=== PATIENT | female | born 1985 | race Caucasian/White ===

== ENCOUNTER 2019-06-08 14:59 | Emergency (ER) | payer SELFPAY ==
[2019-06-08 15:18] VITALS: BMI 29.5
--- NOTE | 2019-06-08 16:30 | PDOC ---
History of Present Illness - General Chief Complaint: Vaginal Bleeding Stated Complaint: PELVIC PAIN Time Seen by Provider: 06/08/19 16:11 - History of Present Illness Initial Comments: Ms. Hogue is a 33 y/o female G0 with PMH significant for hypothyroidism and PCOS presenting today with vaginal bleeding for the past 3 weeks. Reports that she has very irregular periods every few months, and they usually last 1-2 weeks. Reports that this has lasted longer than her previous periods. Reports dizziness that started a week ago. Reports cramping every other day, and noticed that she was passing blood clots over the past week. Denies nausea/vomiting. Denies dysuria or hematuria. Denies chest pain/ shortness of breath. Denies abdominal pain. Denies back pain. Denies fever/ chills. Past History - Past Medical History Allergies/Adverse Reactions: Allergies Allergy/AdvReac Type Severity Reaction Status Date / Time No Known Allergies Allergy Verified 06/08/19 15:18 Home Medications: Ambulatory Orders NK [No Known Home Medication] 06/08/19 COPD: No - Psycho Social/Smoking Cessation Hx Smoking History: Never smoked Have you smoked in the past 12 months: No Information on smoking cessation initiated: No Hx Alcohol Use: No Drug/Substance Use Hx: No Review of Systems - Review of Systems Comments:: GENERAL/CONSTITUTIONAL: No fever or chills. No weakness._ HEAD, EYES, EARS, NOSE AND THROAT: No change in vision. No change in hearing. No sore throat._ CARDIOVASCULAR: No chest pain or shortness of breath_ RESPIRATORY: Denies cough, hemoptysis_ GASTROINTESTINAL: No nausea, vomiting, diarrhea or constipation._ GENITOURINARY: No dysuria, frequency, or change in urination. Reports vaginal bleeding, cramps, and passing clots. MUSCULOSKELETAL: No joint or muscle swelling or pain. No neck or back pain._ SKIN: No rash_ NEUROLOGIC: Reports dizziness. No headache, loss of consciousness, or change in strength/sensation._ ENDOCRINE: No increased thirst. No abnormal weight change_ HEMATOLOGIC/LYMPHATIC: No history of anemia or easy bleeding. ALLERGIC/IMMUNOLOGIC: No hives or skin allergy._ *Physical Exam - Vital Signs Last Vital Signs Temp Pulse Resp BP Pulse Ox 98.3 F 87 16 128/82 100 06/08/19 15:16 06/08/19 15:16 06/08/19 15:16 06/08/19 15:16 06/08/19 15:16 - Physical Exam GENERAL: Awake, alert, and oriented to person/place/time, in no acute distress_ HEAD: No signs of trauma, normocephalic, atraumatic _ EYES: PERRLA, EOMI, sclera anicteric, conjunctiva clear_ ENT: Hearing grossly normal, nares patent, oropharynx clear without exudates. No uvular deviation. Moist mucosa_ NECK: Normal ROM, supple, no lymphadenopathy, JVD, or masses_ LUNGS: No distress, speaks in full sentences, clear to auscultation bilaterally _ HEART: Regular rate and rhythm, normal S1 and S2, no murmurs appreciated, peripheral pulses normal and equal bilaterally._ ABDOMEN: Soft, TTP LLQ, normoactive bowel sounds. No guarding, no rebound. No masses_ EXTREMITIES: Normal inspection, Normal range of motion, no edema. No clubbing or cyanosis_ NEUROLOGICAL: Cranial nerves II through XII grossly intact. Normal speech, normal gait, no focal sensorimotor deficits _ SKIN: Warm, Dry, normal turgor, no rashes or lesions noted_ PELVIC: External exam shows no rash, lesions, ulcers. Blood in the vaginal vault and posterior fornix. Os appears closed. Left adnexal tenderness. No right sided tenderness or CMT. No masses felt. No vaginal discharge. No pooling of blood. ED Treatment Course - LABORATORY CBC & Chemistry Diagram: 06/08/19 16:31 06/08/19 17:33 Medical Decision Making - Medical Decision Making 06/08/19 16:30 33F hx of PCOS and hypothyroidism, G0, irregular periods, presenting with 3 weeks of vaginal bleeding/clots/cramping. -cbc, cmp, tsh -ua, ucx, upreg -t+s 06/08/19 21:16 TVUS shows no ovarian torsion or enlarged cyst. Labs reviewed. Laboratory Tests 06/08/19 06/08/19 06/08/19 16:31 16:31 16:31 WBC 13.1 H RBC 4.62 Hgb 12.8 Hct 39.8 MCV 86.2 MCH 27.6 MCHC 32.1 RDW 15.2 Plt Count 316 MPV 8.9 Absolute Neuts (auto) 7.6 Neutrophils % 57.6 Lymphocytes % 32.6 Monocytes % 6.9 Eosinophils % 2.0 Basophils % 0.9 Nucleated RBC % 0 PT with INR INR PTT (Actin FS) Sodium Cancelled Potassium Cancelled Chloride Cancelled Carbon Dioxide Cancelled Anion Gap Cancelled BUN Cancelled Creatinine Cancelled Est GFR (CKD-EPI)AfAm Cancelled Est GFR (CKD-EPI)NonAf Cancelled Random Glucose Cancelled Calcium Cancelled Total Bilirubin Cancelled AST Cancelled ALT Cancelled Alkaline Phosphatase Cancelled Total Protein Cancelled Albumin Cancelled TSH Urine Color Urine Appearance Urine pH Ur Specific [place] Urine Protein Urine Glucose (UA) Urine Ketones Urine Blood Urine Nitrite Urine Bilirubin Urine Urobilinogen Ur Leukocyte Esterase Urine WBC (Auto) Urine RBC (Auto) Urine Casts (Auto) U Epithel Cells (Auto) Urine Bacteria (Auto) Urine HCG, Qual Negative Blood Type Antibody Screen 06/08/19 06/08/19 06/08/19 16:31 16:31 16:31 WBC RBC Hgb Hct MCV MCH MCHC RDW Plt Count MPV Absolute Neuts (auto) Neutrophils % Lymphocytes % Monocytes % Eosinophils % Basophils % Nucleated RBC % PT with INR Cancelled INR Cancelled PTT (Actin FS) Cancelled Sodium Potassium Chloride Carbon Dioxide Anion Gap BUN Creatinine Est GFR (CKD-EPI)AfAm Est GFR (CKD-EPI)NonAf Random Glucose Calcium Total Bilirubin AST ALT Alkaline Phosphatase Total Protein Albumin TSH Cancelled Urine Color Yellow Urine Appearance Clear Urine pH 6.5 Ur Specific [place] 1.025 Urine Protein Negative Urine Glucose (UA) Negative Urine Ketones Negative Urine Blood 3+ H Urine Nitrite Negative Urine Bilirubin Negative Urine Urobilinogen 1.0 Ur Leukocyte Esterase Negative Urine WBC (Auto) 2 Urine RBC (Auto) 276 Urine Casts (Auto) 1 U Epithel Cells (Auto) 1.1 Urine Bacteria (Auto) 11.3 Urine HCG, Qual Blood Type Antibody Screen 06/08/19 06/08/19 06/08/19 16:31 17:33 17:33 WBC RBC Hgb Hct MCV MCH MCHC RDW Plt Count MPV Absolute Neuts (auto) Neutrophils % Lymphocytes % Monocytes % Eosinophils % Basophils % Nucleated RBC % PT with INR 12.40 INR 1.05 PTT (Actin FS) 34.3 Sodium 138 Potassium 3.5 Chloride 105 Carbon Dioxide 25 Anion Gap 8 BUN 14.6 Creatinine 0.7 Est GFR (CKD-EPI)AfAm 133.81 Est GFR (CKD-EPI)NonAf 115.45 Random Glucose 89 Calcium 9.0 Total Bilirubin 0.2 AST 23 ALT 50 Alkaline Phosphatase 104 Total Protein 7.6 Albumin 3.9 TSH Urine Color Urine Appearance Urine pH Ur Specific [place] Urine Protein Urine Glucose (UA) Urine Ketones Urine Blood Urine Nitrite Urine Bilirubin Urine Urobilinogen Ur Leukocyte Esterase Urine WBC (Auto) Urine RBC (Auto) Urine Casts (Auto) U Epithel Cells (Auto) Urine Bacteria (Auto) Urine HCG, Qual Blood Type Cancelled Antibody Screen Cancelled 06/08/19 17:33 WBC RBC Hgb Hct MCV MCH MCHC RDW Plt Count MPV Absolute Neuts (auto) Neutrophils % Lymphocytes % Monocytes % Eosinophils % Basophils % Nucleated RBC % PT with INR INR PTT (Actin FS) Sodium Potassium Chloride Carbon Dioxide Anion Gap BUN Creatinine Est GFR (CKD-EPI)AfAm Est GFR (CKD-EPI)NonAf Random Glucose Calcium Total Bilirubin AST ALT Alkaline Phosphatase Total Protein Albumin TSH 3.67 Urine Color Urine Appearance Urine pH Ur Specific [place] Urine Protein Urine Glucose (UA) Urine Ketones Urine Blood Urine Nitrite Urine Bilirubin Urine Urobilinogen Ur Leukocyte Esterase Urine WBC (Auto) Urine RBC (Auto) Urine Casts (Auto) U Epithel Cells (Auto) Urine Bacteria (Auto) Urine HCG, Qual Blood Type Antibody Screen 06/08/19 22:17 CT abd shows no acute intra-abdominal pathology. Plan to d/c home with OBGYN follow up. Discussed the plan with the patient who verbalized understanding and agreement. Return precautions given. All questions answered. Discharge - Discharge Information Problems reviewed: Yes Clinical Impression/Diagnosis: Vaginal bleeding Condition: Stable Disposition: HOME - Admission No - Follow up/Referral Referrals: Frederick Kemp [Primary Care Provider] - Issac Feldman MD [Staff Physician] - - Patient Discharge Instructions Patient Printed Discharge Instructions: DI for Vaginal Bleeding Additional Instructions: Please make an appointment with an OBGYN for follow up (referral provided here) for the vaginal bleeding and left lower abdominal pain. If you experience any new, worsening, or concerning symptoms, including dizziness, severe abdominal or pelvic pain, shortness of breath, fever and chills, or any other concerns, please return to the emergency department. - Post Discharge Activity
[2019-06-08 17:19] LABS: BASO % 0.9 % (0-2.0); HEMATOCRIT 39.8 % (32.4-45.2); HEMOGLOBIN 12.8 GM/dL (10.7-15.3); LYMPH % 32.6 % (8-40); MCH 27.6 pg (25.7-33.7); MCHC 32.1 g/dl (32.0-36.0); MEAN CELL VOLUME 86.2 fl (80-96); MEAN PLT VOLUME 8.9 fl (7.5-11.1); MONO % 6.9 % (3.8-10.2); NEUT % 57.6 % (42.8-82.8); PLATELET COUNT 316 K/MM3 (134-434); RBC 4.62 M/mm3 (3.60-5.2); RDW 15.2 % (11.6-15.6); WHITE BLOOD COUNT 13.1 K/mm3 (4.0-10.0)
[2019-06-08 17:38] LABS: EPI CELLS 1.1 /HPF (0-5/HPF); HYALINE CASTS 1 /lpf (0-8); PH,URINE 6.5 (5.0-8.0); URINE APPEARANCE CLEAR; URINE BACTERIA 11.3 /hpf (NEGATIVE); URINE BILIRUBIN NEGATIVE (NEGATIVE); URINE COLOR YELLOW; URINE GLUCOSE (UA) NEGATIVE (NEGATIVE); URINE KETONE NEGATIVE (NEGATIVE); URINE LEUK ESTERASE NEGATIVE (NEGATIVE); URINE NITRITE NEGATIVE (NEGATIVE); URINE PROTEIN NEGATIVE (NEGATIVE); URINE RBC 276 /hpf (0-4); URINE WBC 2 /hpf (0-5)
[2019-06-08 18:18] LABS: INR 1.05 (0.83-1.09); PROTHROMBIN TIME (PATIENT) 12.4 SEC (9.7-13.0)
[2019-06-08 18:21] LABS: ACTIVATED PTT 34.3 SECONDS (25.2-36.5)
[2019-06-08 18:36] LABS: ALBUMIN 3.9 g/dl (3.4-5.0); BILIRUBIN,TOTAL 0.2 mg/dL (0.2-1); BLOOD UREA NITROGEN 14.6 mg/dL (7-18); CREATININE 0.7 mg/dL (0.55-1.3); POTASSIUM 3.5 mmol/L (3.5-5.1); TOT PROT 7.6 g/dl (6.4-8.2)
--- NOTE | 2019-06-08 19:24 | PDOC ---
Documentation entered by Cristino White SCRIBE, acting as scribe for Vandana Lam MD. Vandana Lam MD: This documentation has been prepared by the Christopher nava Nirvannie, SCRIBE, under my direction and personally reviewed by me in its entirety. I confirm that the documentation accurately reflects all work, treatment, procedures, and medical decision making performed by me. Attending Attestation - Resident Resident Name: Yung Yao - ED Attending Attestation I have performed the following: I have examined & evaluated the patient, The case was reviewed & discussed with the resident, I agree w/resident's findings & plan, Exceptions are as noted - HPI HPI: 06/08/19 18:40 The patient is a 33 year old female, with a significant past medical history of PCOS and hypothyroidism, who presents to the emergency department with 3 weeks of progressively worsening vaginal bleeding with 1.5 weeks of left sided pelvic pain. Patient notes today she has been passing large clots and needed to change 3-4 pads per hour with associated lightheadness prompting her to come in. She reports that her periods often last for 1-2 weeks and can be very heavy, but this is the longest her bleeding has lasted. Has a [employer] OFFIC[employer] but lost her insurance until Jul 2019 and has not been able to f/u. She denies recent F/C, nausea, vomit, diarrhea or constipation. She denies recent dysuria, frequency, urgency or hematuria. She denies recent chest pain or shortness of breath. Allergies: NKDA [employer] TECHNICAL OFFICER: Dr. Echols - Physicial Exam PE: 06/08/19 19:11 GENERAL: Awake, alert, and fully oriented, in no acute distress HEAD: No signs of trauma EYES: PERRLA, EOMI, sclera anicteric, conjunctiva clear ENT: Oropharynx clear without exudates. Moist mucosa NECK: Normal ROM, supple, no lymphadenopathy, JVD, or masses LUNGS: Breath sounds equal, clear to auscultation bilaterally. No wheezes, and no crackles HEART: Regular rate and rhythm, normal S1 and S2, no murmurs, rubs or gallops ABDOMEN: Soft, nontender, normoactive bowel sounds. No guarding, no rebound. No masses PELVIC: +dark moderate blood in vaginal vault, no pooling in speculum. Os closed. No midline or R adnexal ttp. +L adnexal ttp EXTREMITIES: Normal range of motion, no edema. No cords, erythema, or tenderness. WWP. NEUROLOGICAL: Normal speech, cranial nerves intact, equal strength and sensation b/l SKIN: Warm, Dry, normal turgor, no rashes or lesions noted. - Medical Decision Making 06/08/19 19:15 33yo F hx PCOS, hypothyroidism presents to the ED with heavy vaginal bleeding for 3 weeks and 1.5 weeks of L sided pelvic pain. Vitals wnl +L adnexal ttp and vaginal bleeding DDx includes ovarian cyst vs dysfunctional uterine bleeding vs Unlikely ovarian torsion as pain is dull, has been present for 1.5 weeks with no acute episodes of pain Plan: -UPT -labs -TVUS -UA -reassess 06/08/19 21:00 Pt is not anemic US negative for L adnexal pathology +LLQ ttp on rpt abd exam CTAP ordered to r/o diverticulitis or other acute LLQ pathology Will reassess CTAP with no acute findings Likely pain 2/2 PCOS No bleeding while in ED Pt well appearing, clinically stable for DC home with [employer] f/u I discussed the physical exam findings, ancillary test results and final diagnoses with the patient. I answered all of the patient's questions. The patient was satisfied with the care received and felt comfortable with the discharge plan and treatment plan. The patient will call their primary care physician within 24 hours to arrange follow-up and will return to the Emergency Department with any new, persistent or worsening symptoms.
[2019-06-08 22:45] VITALS: BP 122/68; PULSE 88; TEMP 98.6
== END 2019-06-08 22:40 | disposition home or self-care (01) ==
LOC: JER 14:59
DX: N93.8 Other specified abnormal uterine and vaginal bleeding (principal); R10.32 Left lower quadrant pain
CPT/HCPCS: 36415; 74177-TC; 76830-TC; 80053; 81003; 84443; 84703; 85025; 85610; 85730; 87086; 99282-25; Q9967

== ENCOUNTER 2020-09-24 20:44 | Emergency (ER) | payer OTHER ==
[2020-09-24 20:58] VITALS: BMI 29.5
[2020-09-24] MEDS ORDERED: SODIUM CHLORIDE 1,000 ML IV STA (22:17)
[2020-09-24] MEDS ORDERED: ONDANSETRON 4 MG/2 ML VIAL IVPUSH ONE (22:17)
[2020-09-24] MEDS ORDERED: ACETAMINOPHEN 1000 MG/100 ML VIAL (NON FORMULARY) IVPB ONE (22:17)
[2020-09-24] MEDS ORDERED: ACETAMINOPHEN INJECTION 100 ML IVPB ONE (22:41)
[2020-09-24] MEDS ORDERED: ONDANSETRON 4 MG/2 ML VIAL ONE ×2 (22:41→23:08)
[2020-09-24 22:44] LABS: BASO % 0.6 % (0-2.0); EOS % 0.9 % (0-4.5); HEMATOCRIT 35.6 % (32.4-45.2); HEMOGLOBIN 11.6 GM/dL (10.7-15.3); LYMPH % 18.3 % (8-40); MCH 27.2 pg (25.7-33.7); MCHC 32.6 g/dl (32.0-36.0); MEAN CELL VOLUME 83.5 fl (80-96); MEAN PLT VOLUME 8.1 fl (7.5-11.1); MONO % 6.1 % (3.8-10.2); NEUT % 74.1 % (42.8-82.8); PLATELET COUNT 283 K/MM3 (134-434); RBC 4.27 M/mm3 (3.60-5.2); RDW 15.6 % (11.6-15.6); WHITE BLOOD COUNT 14.8 K/mm3 (4.0-10.0)
[2020-09-24 22:51] LABS: EPI CELLS 14 /uL (0-25.1); HYALINE CASTS 1 /uL (0-3.1); PH,URINE 5.5 (5.0-8.0); URINE APPEARANCE CLEAR; URINE BACTERIA 13 /uL (0-1359); URINE BILIRUBIN NEGATIVE (NEGATIVE); URINE COLOR RED; URINE GLUCOSE (UA) NEGATIVE (NEGATIVE); URINE KETONE NEGATIVE (NEGATIVE); URINE LEUK ESTERASE TRACE (NEGATIVE); URINE NITRITE NEGATIVE (NEGATIVE); URINE PROTEIN TRACE (NEGATIVE); URINE RBC 10414 /uL (0-23.9); URINE UROBILINOGEN 0.2 mg/dL (0.2-1.0); URINE WBC 38 /uL (0-25.8)
[2020-09-24 22:59] LABS: POTASSIUM 3.6 mmol/L (3.5-5.1)
[2020-09-24 23:01] LABS: CALCIUM 10.2 mg/dL (8.5-10.1)
[2020-09-24 23:02] LABS: ALBUMIN 3.9 g/dl (3.4-5.0); BLOOD UREA NITROGEN 13.2 mg/dL (7-18)
[2020-09-24 23:05] LABS: CREATININE 0.8 mg/dL (0.55-1.3)
[2020-09-24 23:06] LABS: BILIRUBIN,TOTAL 0.3 mg/dL (0.2-1)
[2020-09-24 23:07] LABS: TOT PROT 7.6 g/dl (6.4-8.2)
[2020-09-25 01:35] VITALS: BP 108/71; PULSE 69; TEMP 98.2
== END 2020-09-25 02:02 | disposition home or self-care (01) ==
LOC: JER 20:44
PROC: 3E033NZ Introduction of Analgesics, Hypnotics, Sedatives into Peripheral Vein, Percutaneous Approach (ICD-10-PCS; principal; 2020-09-24)
PROC: 3E033GC Introduction of Other Therapeutic Substance into Peripheral Vein, Percutaneous Approach (ICD-10-PCS; 2020-09-24)
PROC: 3E0337Z Introduction of Electrolytic and Water Balance Substance into Peripheral Vein, Percutaneous Approach (ICD-10-PCS; 2020-09-24)
DX: N23 Unspecified renal colic (principal); N93.9 Abnormal uterine and vaginal bleeding, unspecified
CPT/HCPCS: 36415; 74176-TC; 80053; 81003; 84703; 85025; 87086; 99285-25; J0131